=== PATIENT | male | born 1930 | race Caucasian/White ===

== ENCOUNTER 2019-05-26 15:18 | Emergency (ER) | payer MEDICARE ==
[2019-05-26 15:50] LABS: #Basophils 0.1 thou/uL (0.0-0.2); #Lymphocytes 1.5 thou/uL (1.20-3.40); #Monocytes 0.7 thou/uL (0.11-0.59); #Neutrophils 3.8 thou/uL (1.40-6.50); %Eosinophils 0.8 % (0.0-10.0); %Lymphocytes 24.5 % (21.0-51.0); %Neutrophils 61.7 % (42.0-75.0); Hemoglobin 13.3 g/dL (14.0-18.0); Mean Corpuscular HGB CONC 32.1 g/dL (32.0-36.0); Mean Corpuscular Hemoglobin 30.8 pg (27.0-31.0); Mean Corpuscular Volume 96.1 fL (78.0-98.0); Mean Platelet Volume 7.1 fL (7.4-10.4); Platelet Count 157 thou/uL (130-400); RBC Distribution Width 13.5 % (11.5-14.5); Red Blood Cell (RBC) Count 4.31 mill/uL (4.70-6.10); White Blood Cell (WBC) Count 6.2 thou/uL (4.8-10.8)
--- NOTE | 2019-05-26 15:51 | RAD ---
EXAM: Portable chest INDICATIONS: Dizziness COMPARISON: 11/11/2017 FINDINGS: Lung salazar appear clear. No infiltrate or vascular congestion. Evidence of mild bibasilar atelectasis has similar appearance to the prior exam. Pacemaker leads appear adequately positioned. Borderline cardiomegaly. IMPRESSION: Mild bibasilar atelectasis. Chest findings appear stable.
[2019-05-26 16:12] LABS: Bilirubin Negative (Negative); Blood, Urine Trace (Negative); Clarity Clear (Clear); Glucose, Urine (Dipstick) Negative (Negative); Leukocyte Negative (Negative); Nitrite Negative (Negative); Protein, Urine (Dipstick) Negative (Neg-Trace); Urobilinogen 0.2 mg/dL (Less than 2)
[2019-05-26 16:22] LABS: INR-International Normal Ratio 1.9; PTT 32.7 SEC (22.9-36.1); Prothrombin Time 21.3 SEC (12.0-14.7)
[2019-05-26 16:24] LABS: ALT (SGPT) 45 U/L (8-55); AST (SGOT) 40 U/L (5-34); Albumin 4.4 g/dL (3.4-4.8); Alkaline Phosphatase 286 U/L (40-110); Anion Gap 18 mmol/L (10-20); BUN (Urea Nitrogen) 29 mg/dL (8.4-25.7); Bilirubin, Total 0.9 mg/dL (0.2-1.2); CK (CPK) 291 U/L (30-200); Calc. Creatinine Clearance 0 mL/min (70-130); Carbon Dioxide 24 mmol/L (23-31); Chloride 99 mmol/L (98-107); Estimated GFR-MDRD 49; Globulin 3.1 g/dL (2.4-3.5); Glucose 256 mg/dL (83-110); Lipase 20 U/L (8-78); Potassium 4.6 mmol/L (3.5-5.1); Protein, Total 7.5 g/dL (5.8-8.1); Sodium 136 mmol/L (136-145)
[2019-05-26 16:24] LABS: RBC/HPF 0-3 HPF (0-3); Squamous Epithelial 0-3 HPF (0-3)
== END 2019-05-26 17:10 | disposition home or self-care (01) ==
LOC: NAV ERS 15:18
DX: R53.81 Other malaise (principal); I50.9 Heart failure, unspecified; E11.9 Type 2 diabetes mellitus without complications; I11.0 Hypertensive heart disease with heart failure; M19.90 Unspecified osteoarthritis, unspecified site; Z86.73 Personal history of transient ischemic attack (TIA), and cerebral infarction without residual deficits; Z87.891 Personal history of nicotine dependence; Z79.01 Long term (current) use of anticoagulants; Z79.899 Other long term (current) drug therapy; Z79.82 Long term (current) use of aspirin
CPT/HCPCS: 71045; 80053; 81003; 81015; 82550; 83690; 83880; 84484; 85025; 85610; 85730; 93005